=== PATIENT | male | born 1995 | race African-American/Black ===

== ENCOUNTER 2018-04-13 06:39 | Emergency (ER) | payer OTHER ==
[2018-04-13 07:25] LABS: AMORPHOUS SEDIMENT RFX SMALL (NEGATIVE); KETONE, URINE AUTO RFX NEGATIVE (NEGATIVE); LEUKOCYTE ESTERASE UR AUTO RFX 1+ (NEGATIVE); MUCUS, URINE RFX SMALL (NEGATIVE); NITRITE, URINE AUTO RFX NEGATIVE (NEGATIVE); RBC, URINE AUTO RFX 4 /HPF (0-3); SPECIFIC GRAVITY UR AUTO RFX 1.021 (1.002-1.035); SQUAM EPITHELIAL CELL UR AURFX 0 /HPF (0-6); WBC, URINE AUTO RFX 70 /HPF (0-3)
[2018-04-13 09:25] LABS: CHLAMYDIA DNA AMPLIFICATION POSITIVE (NEGATIVE); GC DNA AMPLIFICATION NEGATIVE (NEGATIVE)
== END 2018-04-13 07:59 | disposition home or self-care (01) ==
LOC: M ED 06:39
DX: N39.0 Urinary tract infection, site not specified (principal)
CPT/HCPCS: 81001